=== PATIENT | male | born 1965 | race Caucasian/White ===

== ENCOUNTER 2025-07-19 14:31 | Outpatient (CLI) | payer MEDICARE, MEDICAID ==
[~2025-07-19 14:31] MED LIST: PHEN-716 PO
--- NOTE | 2025-07-19 18:16 | RADIOLOGY REPORT ---
EXAM: CT CT LUMBAR SPINE INDICATION: LOW BACK PAIN TECHNIQUE: Axial images of the lumbar spine have been obtained along with coronal and sagittal reformatted images. CT scans at this facility use dose modulation, iterative reconstruction, and/or weight based dosing when appropriate to reduce radiation dose to as low as reasonably achievable. COMPARISON: CT CT PELVIS on DOS: 07/19/25 FINDINGS: ANATOMY: Five lumbar-type vertebral bodies are present. The most inferior well- formed disc space will be referred to as L5-S1 for purposes of numbering in this report. VERTEBRAL BODIES: The vertebral bodies are normal in height and alignment. SPINAL CANAL: Significant congenitally short pedicles contributing to background of moderate to severe multilevel diffuse spinal canal narrowing of the lumbar spine. Spinal canal narrowing down to 5-6 mm diffusely INTERVERTEBRAL DISCS: Trace possible posterior disc osteophyte complexes at L3-4 and L4-5. FACETS: Multilevel mild to moderate facet arthropathy. Multilevel at least mild bilateral foraminal narrowing at L3-4, L4-5, L5-S1. OTHER: Sigmoid diverticulosis. IMPRESSION: 1. Significant congenitally short pedicles contributing to background of moderate to severe multilevel diffuse spinal canal narrowing of the lumbar spine. 2. Spinal canal narrowing down to 5-6 mm diffusely. 3. Multilevel at least mild bilateral foraminal narrowing at L3-4, L4-5, L5-S1.
--- NOTE | 2025-07-19 18:40 | RADIOLOGY REPORT ---
EXAM: CT CT PELVIS INDICATION: LOW BACK PAIN TECHNIQUE: Axial images of pelvis without contrast have been obtained along with coronal and sagittal reformatted images. All CT scans at this facility use dose modulation, iterative reconstruction, and/or weight based dosing when appropriate to reduce radiation dose to as low as reasonably achievable. COMPARISON: None FINDINGS: BONES: No CT evidence of an acute fracture or aggressive osseous lesion. MUSCLES: No abnormal attenuation. JOINT SPACES: No joint effusion. TENDONS/LIGAMENTS: Intact. OTHER: Sigmoid diverticula without CT evidence of acute diverticulitis. Mild prostatomegaly. IMPRESSION: 1. No CT evidence of an acute fracture.
== END 2025-07-19 23:59 | disposition home or self-care (01) ==
LOC: RAD 14:31
PROVIDERS: ATTEND Physician Assistant
DX: M47.816 Spondylosis without myelopathy or radiculopathy, lumbar region (principal); M48.07 Spinal stenosis, lumbosacral region; K57.30 Diverticulosis of large intestine without perforation or abscess without bleeding; N40.0 Benign prostatic hyperplasia without lower urinary tract symptoms; M54.50 Low back pain, unspecified
CPT/HCPCS: 72131; 72192